=== PATIENT | male | born 1985 | race Caucasian/White ===

== ENCOUNTER 2025-05-18 14:10 | Inpatient (IN) | payer OTHER ==
[~2025-05-18] VITALS: Ht 162.6 cm; Wt 79.5 kg
[2025-05-18] MEDS ORDERED: 0.9% SODIUM CHLORIDE 10 ML SYRINGE IVP PRN (15:00)
[2025-05-18 15:03] LABS: PLATELET COUNT (AUTO) 310 K/uL (150-450); RED BLOOD CELL COUNT(AUTO) 4.66 MIL/uL (4.50-5.90); RED CELL DISTRIBUTION WIDTH 12.1 % (11.5-14.5); WHITE BLOOD COUNT (AUTO) 9.1 K/uL (4.5-11.0)
[2025-05-18] MEDS: SODIUM CHLORIDE 0.9% 2,400 ML IV ONE (15:05)
[2025-05-18 15:14] LABS: CALCIUM, TOTAL 8.8 mg/dL (8.8-10.5); CREATININE 0.79 mg/dL (0.60-1.30); GLOMERULAR FILTR. RATE CALC > 60 mL/min (>60); GLUCOSE,RANDOM 110 mg/dL (70-110); SODIUM SERUM 135 mmol/L (136-145); UREA NITROGEN, BLOOD 12 mg/dL (7-18)
[2025-05-18 15:39] LABS: LACTIC ACID 1.4 mmol/L (0.4-2.0)
[2025-05-18] MEDS: VANCOMYCIN 1GM/WATER(PEG/NADA) 200 ML IV ONE (15:42)
[2025-05-18] MEDS: PERTUSS(ACELL),DIPH,TET/PF 0.5 ML SYRINGE [ADULT] IM. ONE (15:42)
[2025-05-18] MEDS: ACETAMINOPHEN 325 MG TABLET PO PRN (17:12)
[2025-05-18] MEDS: ONDANSETRON HCL 4 MG/2 ML VIAL IVP PRN (17:12)
[2025-05-18] MEDS ORDERED: SODIUM CHLORIDE 0.9% 250 ML IV ONE (17:30)
[2025-05-18 17:54] VITALS: BP 120/75; PULSE 78; RESP 18; TEMP 97.6; O2SAT 100
[2025-05-18] MEDS: METOPROLOL TARTRATE 25 MG TABLET PO ONE (18:21)
[2025-05-18] MEDS: ATORVASTATIN CALCIUM 40 MG TABLET PO ONE (18:21)
[2025-05-18] MEDS: HEPARIN SODIUM,PORCINE 5,000 UNITS/ML VIAL SQ SCH (18:22)
[2025-05-18] MEDS: CefTRIAXone 1 GM/DEXTROSE 50 ML IV SCH (18:51)
[2025-05-18 20:00] VITALS: BP 104/63; PULSE 59; RESP 20; TEMP 98.1; O2SAT 96
[2025-05-18] MEDS ORDERED: IOHEXOL 350 MG/ML 100 ML VIAL ONE (22:11)
[2025-05-18] MEDS: VANCOMYCIN 1GM/WATER(PEG/NADA) 200 ML IV SCH (23:07)
[2025-05-19 06:19] VITALS: BP 96/69; PULSE 60; RESP 18; TEMP 97.9; O2SAT 97
[2025-05-19 07:01] LABS: PLATELET COUNT (AUTO) 281 K/uL (150-450); RED BLOOD CELL COUNT(AUTO) 4.24 MIL/uL (4.50-5.90); RED CELL DISTRIBUTION WIDTH 12.2 % (11.5-14.5); WHITE BLOOD COUNT (AUTO) 7.8 K/uL (4.5-11.0)
[2025-05-19 07:12] LABS: CALCIUM, TOTAL 8.5 mg/dL (8.8-10.5); CREATININE 0.88 mg/dL (0.60-1.30); GLOMERULAR FILTR. RATE CALC > 60 mL/min (>60); GLUCOSE,RANDOM 108 mg/dL (70-110); SODIUM SERUM 135 mmol/L (136-145); UREA NITROGEN, BLOOD 9 mg/dL (7-18)
[2025-05-19 08:12] VITALS: BP 112/80; PULSE 62; RESP 18; TEMP 98.1; O2SAT 98
[2025-05-19] MEDS: PANTOPRAZOLE SODIUM 40 MG/VIAL IVP SCH (08:33)
[2025-05-19 19:34] VITALS: BP 106/71; PULSE 74; RESP 20; TEMP 98.1; O2SAT 94
[2025-05-20 05:20] VITALS: BP 100/69; PULSE 57; RESP 18; TEMP 97.9; O2SAT 97
[2025-05-20] MEDS ORDERED: SODIUM CHLORIDE 0.9% 500 ML IV ONE (05:33)
[2025-05-20 07:24] LABS: CALCIUM, TOTAL 8.4 mg/dL (8.8-10.5); CREATININE 0.84 mg/dL (0.60-1.30); GLOMERULAR FILTR. RATE CALC > 60 mL/min (>60); GLUCOSE,RANDOM 109 mg/dL (70-110); SODIUM SERUM 138 mmol/L (136-145); UREA NITROGEN, BLOOD 10 mg/dL (7-18)
[2025-05-20] MEDS: HYDROCODONE/ACETAMINOPHEN 5-325 MG TABLET PO ONE (17:43)
[2025-05-20 19:55] VITALS: BP 107/64; PULSE 67; RESP 18; TEMP 98.2; O2SAT 98
[2025-05-21 04:49] VITALS: BP 136/85; PULSE 60; RESP 18; TEMP 97.9; O2SAT 99
[2025-05-21 07:39] LABS: CALCIUM, TOTAL 8.6 mg/dL (8.8-10.5); CREATININE 0.84 mg/dL (0.60-1.30); GLOMERULAR FILTR. RATE CALC > 60 mL/min (>60); GLUCOSE,RANDOM 104 mg/dL (70-110); SODIUM SERUM 139 mmol/L (136-145); UREA NITROGEN, BLOOD 10 mg/dL (7-18)
[2025-05-21 08:00] VITALS: BP 125/85; PULSE 59; RESP 20; TEMP 97.7; O2SAT 100
[2025-05-21] MEDS: BACITRACIN 28 GM OINTMENT TP SCH (08:24)
[2025-05-21 20:12] VITALS: BP 117/86; PULSE 66; RESP 18; TEMP 98.1; O2SAT 98
[2025-05-22 04:30] VITALS: BP 115/83; PULSE 61; RESP 17; TEMP 97.9; O2SAT 95
[2025-05-22 06:26] LABS: PLATELET COUNT (AUTO) 368 K/uL (150-450); RED BLOOD CELL COUNT(AUTO) 4.53 MIL/uL (4.50-5.90); RED CELL DISTRIBUTION WIDTH 12.0 % (11.5-14.5); WHITE BLOOD COUNT (AUTO) 7.2 K/uL (4.5-11.0)
[2025-05-22 06:42] LABS: CALCIUM, TOTAL 8.9 mg/dL (8.8-10.5); CREATININE 0.90 mg/dL (0.60-1.30); GLOMERULAR FILTR. RATE CALC > 60 mL/min (>60); GLUCOSE,RANDOM 103 mg/dL (70-110); SODIUM SERUM 139 mmol/L (136-145); UREA NITROGEN, BLOOD 11 mg/dL (7-18)
[2025-05-22 08:18] VITALS: BP 110/69; PULSE 58; RESP 18; TEMP 97.7; O2SAT 99
[2025-05-22] MEDS ORDERED: LINE600T14 PO (16:40)
[2025-05-22] MEDS ORDERED: LEVO750T68 PO (16:41)
[2025-05-22 19:56] VITALS: BP 121/73; PULSE 78; RESP 18; TEMP 98.1; O2SAT 96
== END 2025-05-22 21:30 | DRG 603 ==
LOC: EMS 14:10 → EDH 15:57 → 6S 17:23
PROVIDERS: ADMIT Internal Medicine; ATTEND Internal Medicine
PROC: 0Y9G3ZZ Drainage of Left Knee Region, Percutaneous Approach (ICD-10-PCS; principal; 2025-05-20)
DX: L03.116 Cellulitis of left lower limb (principal); E87.3 Alkalosis; R65.10 Systemic inflammatory response syndrome (SIRS) of non-infectious origin without acute organ dysfunction; L02.416 Cutaneous abscess of left lower limb
CPT/HCPCS: 71045; 73701; 80048; 80202; 83605; 83735; 84145; 85025; 85610; 85651; 86140; 87040; 90471; 90715; 93005; 93971; 96361; 96365; 96366; 96375; 97110; 97162; 97166; 97535; 99291; J0696; J1644; J2405; J2470; J7040; J7050; 36415-L1; 36415-TC